=== PATIENT | female | born 1975 | race Caucasian/White ===

== ENCOUNTER 2016-08-10 08:51 | Emergency (ER) | payer SELFPAY ==
[~2016-08-10] VITALS: Ht 160 cm; Wt 76.2 kg
[~2016-08-10 08:51] MED LIST: IBUP-1050 PO; ONDA4TAB10 SL
[2016-08-10 09:00] VITALS: TEMP 36.9; Ht 160 cm; Wt 76.2 kg
--- NOTE | 2016-08-10 09:19 | EMERGENCY ROOM VISIT NOTE ---
History Report prepared by Christophe: Alexandra Pimentel Under the Supervision of: Dr. Steven Dickey M.D. First contact with patient: 09:06 Chief Complaint: CARDIAC ASSESSMENT Stated Complaint: PAIN OVER L BREAST,WEAK L ARM Nursing Triage Summary: Left sided chest pain for 2-4 weeks. Pt states, "I thought it was a pulled muscle. The pain is over my left breast. It got worse last night and was bothering me more. I felt better if I was sitting up. I don't have any sob. I do have acid reflux, but it doesn't seem like it's that. My left arm feels weak." History of Present Illness The patient is a 41 year old female who presents to the Emergency Room with complaints of intermittent left sided chest and breast pain that began a few weeks ago. She does not recall anything that seems to trigger the pain. She has never timed the pain, but states that her pain has lasted all morning today without going away. She describes it as "nagging." She does not have increased pain with breathing. Sitting up makes the pain slightly better. Her left breast is not red or swollen. She does not recall any trauma or injury. Since her chest discomfort began, she has noticed some left arm weakness. She also complains of feeling chills last night. The patient states that her father has a history of heart issues and required stent placement. He from what was believed to be a heart attack at 59. She does not smoke or drink alcohol. The patient does not have a personal history of heart or lung problems , diabetes, or hypertension. She does note that her blood pressure was high compared to baseline at a doctor's appointment last week. Her doctor was not concerned as it was the first time she has ever had an issue. The patient denies chance of . She is not on a blood thinner. Source of History: patient Onset: a few weeks ago Position: chest (left) Quality: other (nagging) Timing: intermittent Modifying Factors (Relieving): other (sitting up) Associated Symptoms: + chills, + weakness (left arm) Review of Systems See HPI for pertinent positives & negatives. A total of 10 systems reviewed and were otherwise negative. Past Medical & Surgical Medical Problems: (1) Bronchitis (2) delivery delivered (3) GERD (gastroesophageal reflux disease) (4) IBS (irritable bowel syndrome) Old medical records were reviewed. Nurse's notes were reviewed and I agree with. Family History Cancer Diabetes mellitus Gallbladder disease Heart disease Hypertension Kidney disease Kidney stones Social History Smoking Status: Never Smoker Alcohol Use: none Drug Use: none Marital Status: Housing Status: lives with family Occupation Status: employed Current/Historical Medications Miscellaneous Medications Triamcinolone Acetonide (Nasal (Nasal Allergy 24 Hour) Allergies Coded Allergies: Ciprofloxacin (Verified Allergy, Unknown, UNKN, 08/10/16) Sulfa Antibiotics (Verified Adverse Reaction, Intermediate, HALLUCINATIONS , 08/10/16) Physical Exam Vital Signs Date Time Temp Pulse Resp B/P Pulse Ox O2 Delivery O2 Flow Rate FiO2 08/10/16 10:51 65 14 111/67 98 08/10/16 09:22 67 08/10/16 09:00 36.9 69 18 129/83 98 Room Air Physical Exam General: Non-ill appearing middle aged female. Well developed well nourished in no acute distress, breathing comfortably on room air. Normal speech HEENT: Normal cephalic atraumatic. Pupils are equal round and reactive to light. Extraocular movements are intact. Oropharynx is pink with moist mucous membranes. No swelling of the mouth lips or tongue. Neck: Supple with a midline trachea. No meningeal signs or stiffness, no JVD or bruits. No Stridor. Chest: Mildly reproducibly tender. Clear to auscultation bilaterally. No wheezes or rhonchi. No increased work of breathing. Heart: regular rate and rhythm. Abdomen: Soft nontender, nondistended without rebound guarding or rigidity. Extremities: No cyanosis clubbing or edema. No calf tenderness or assymetry Spine/Back. Non tender to palpation. No CVA tenderness Skin: Good turgor without rashes. Neurologic exam: Cranial nerves two through 12 are intact. Motor and sensation are intact and symmetrical throughout. Medical Decision & Procedures ER Provider Diagnostic Interpretation: Radiology results as stated below per my review and radiologist interpretation: CHEST ONE VIEW PORTABLE CLINICAL HISTORY: Atypical chest pain COMPARISON STUDY: 03/18/2016 FINDINGS: The cardiac and mediastinal contours are normal. There is no evidence of focal pulmonary consolidation. There is no evidence of failure. No pleural effusions are visualized.[ IMPRESSION: No active disease in the chest. Electronically signed by: Gavin Messina M.D. 08/10/2016 9:23 AM Dictated Date/Time: 08/10/2016 9:23 AM Laboratory Results 08/10/16 09:10 Red Blood Count 4.61, Mean Corpuscular Volume 87.2, Mean Corpuscular Hemoglobin 30.4, Mean Corpuscular Hemoglobin Concent 34.8, Mean Platelet Volume 9.5, Neutrophils (%) (Auto) 66.8, Lymphocytes (%) (Auto) 26.3, Monocytes (%) (Auto) 5.3, Eosinophils (%) (Auto) 0.5, Basophils (%) (Auto) 0.3, Neutrophils # (Auto) 4.40, Lymphocytes # (Auto) 1.73, Monocytes # (Auto) 0.35, Eosinophils # (Auto) 0.03, Basophils # (Auto) 0.02 08/10/16 09:10 Test 08/10/16 09:10 08/10/16 09:13 08/10/16 09:23 White Blood Count 6.58 K/uL (4.8-10.8) Red Blood Count 4.61 M/uL (4.2-5.4) Hemoglobin 14.0 g/dL (12.0-16.0) Hematocrit 40.2 % (37-47) Mean Corpuscular Volume 87.2 fL (80-100) Mean Corpuscular Hemoglobin 30.4 pg (25-34) Mean Corpuscular Hemoglobin Concent 34.8 g/dl (32-36) Platelet Count 312 K/uL (130-400) Mean Platelet Volume 9.5 fL (7.4-10.4) Neutrophils (%) (Auto) 66.8 % Lymphocytes (%) (Auto) 26.3 % Monocytes (%) (Auto) 5.3 % Eosinophils (%) (Auto) 0.5 % Basophils (%) (Auto) 0.3 % Neutrophils # (Auto) 4.40 K/uL (1.4-6.5) Lymphocytes # (Auto) 1.73 K/uL (1.2-3.4) Monocytes # (Auto) 0.35 K/uL (0.11-0.59) Eosinophils # (Auto) 0.03 K/uL (0-0.5) Basophils # (Auto) 0.02 K/uL (0-0.2) RDW Standard Deviation 41.2 fL (36.4-46.3) RDW Coefficient of Variation 12.9 % (11.5-14.5) Immature Granulocyte % (Auto) 0.8 % Immature Granulocyte # (Auto) 0.05 K/uL (0.00-0.02) Anion Gap 5.0 mmol/L (3-11) Est Creatinine Clear Calc Drug Dose 97.4 ml/min Estimated GFR () 115.6 Estimated GFR (Non- 99.7 BUN/Creatinine Ratio 13.5 (10-20) Calcium Level 8.2 mg/dl (8.5-10.1) Total Bilirubin 0.3 mg/dl (0.2-1) Direct Bilirubin < 0.1 mg/dl (0-0.2) Aspartate Amino Transf (AST/SGOT) 16 U/L (15-37) Alanine Aminotransferase (ALT/SGPT) 30 U/L (12-78) Alkaline Phosphatase 75 U/L (45-117) Total Creatine Kinase 135 U/L (26-192) Creatine Kinase MB 2.1 ng/ml (0.5-3.6) Total Protein 7.5 gm/dl (6.4-8.2) Albumin 4.0 gm/dl (3.4-5.0) Lipase 146 U/L (73-393) Human Chorionic Gonadotropin, Qual NEG (NEG) Creatine Kinase MB Ratio (0-3.0) Bedside D-Dimer 73 ng/mlFEU (0-450) Bedside Troponin I 0.000 ng/ml (0-0.045) Laboratory studies as stated above per my review. ECG Indication: chest pain Rate (beats per minute): 70 Rhythm: normal sinus Findings: no acute ischemic change, no ectopy, other (no prolonged QT) Comparison ECG Date: 03/18/16 Change: no significant change ED Course 0908: The patient was evaluated in room B3, and a complete history and physical examination were performed. 1006: Upon reevaluation, the patient is resting comfortably. I discussed the results and treatment plan with the patient. She verbalized agreement of the treatment plan. The patient was discharged home. Medical Decision Differentials include acute coronary syndrome, PE, costochondritis, GERD, electrolyte or metabolic abnormality. This patient comes in as described above. She was placed in room B3. She is here for treatment and evaluation of chest pain. This for month. It is somewhat reproducible. IV access established. She had EKG which does not suggest acute coronary syndrome or arrhythmia. Chest x-ray was obtained as well as as multiple blood testing. She was reassessed frequently. She remained stable. Her cardiac enzymes are not elevated. Her symptoms are very atypical for a cardiac event been going on for a month. Her d-dimer is within normal limits and a low pretest probability study makes PE highly unlikely. She has no acute electrolyte or metabolic abnormalities. She was reassessed frequently. She has remained stable. She will be discharged home. I think most likely this is a costochondritis or musculoskeletal cause. She should use of enteric-coated aspirin daily and return if: Increasing pain, worsening of symptoms, fever or chills, any new problems or concerns. Follow-up with her doctor this week for recheck Impression Primary Impression: Precordial chest pain Additional Impression: Costochondritis Scribe Attestation The scribe's documentation has been prepared under my direction and personally reviewed by me in its entirety. I confirm that the note above accurately reflects all work, treatment, procedures, and medical decision making performed by me. Departure Information Dispostion Home / Self-Care Referrals [facility] (PCP) Patient Instructions My [facility] Additional Instructions Rest Drink plenty of fluids Use an enteric aspirin 81 mg a day REturn if: worsening of symptoms, increasing pain, fever, shortness of breath, any new problems or concerns Follow-up with your doctor in 2-4 days for recheck Problem Qualifiers
--- NOTE | 2016-08-10 09:26 | DIAGNOSTIC IMAGING REPORT ---
CHEST ONE VIEW PORTABLE CLINICAL HISTORY: Atypical chest pain COMPARISON STUDY: 03/18/2016 FINDINGS: The cardiac and mediastinal contours are normal. There is no evidence of focal pulmonary consolidation. There is no evidence of failure. No pleural effusions are visualized.[ IMPRESSION: No active disease in the chest. Electronically signed by: Gavin Messina M.D. 08/10/2016 9:23 AM Dictated Date/Time: 08/10/2016 9:23 AM
[2016-08-10 09:34] LABS: BASO % 0.3 %; BASO ABS # 0.02 K/uL (0-0.2); COMPLETE YES; EOS % 0.5 %; HEMATOCRIT 40.2 % (37-47); IG% 0.8 %; LYMPH % 26.3 %; LYMPH ABS # 1.73 K/uL (1.2-3.4); MEAN CELL VOLUME 87.2 fL (80-100); MEAN CORPUSCULAR HEMOGLOBIN 30.4 pg (25-34); MEAN CORPUSCULAR HGB CONC 34.8 g/dl (32-36); MEAN PLATELET VOLUME 9.5 fL (7.4-10.4); MONO % 5.3 %; NEUT % 66.8 %; PLATELET COUNT 312 K/uL (130-400); RED BLOOD COUNT 4.61 M/uL (4.2-5.4); WHITE BLOOD COUNT 6.58 K/uL (4.8-10.8)
[2016-08-10] MEDS ORDERED: TRIA1SPR10 (09:53)
[2016-08-10 09:57] LABS: PREG INTERNAL NEGATIVE QC NEG CLEAR BACKGROUND; PREG INTERNAL POSITIVE QC POS CONTROL LINE
[2016-08-10 09:58] LABS: BLOOD UREA NITROGEN 10 mg/dl (7-18); BUN/CREATININE RATIO 13.5 (10-20); CALCIUM 8.2 mg/dl (8.5-10.1); CARBON DIOXIDE 28 mmol/L (21-32); CHLORIDE 109 mmol/L (98-107); CREATININE 0.75 mg/dl (0.60-1.20); GLUCOSE 93 mg/dl (70-99); POTASSIUM 3.8 mmol/L (3.5-5.1); SODIUM 142 mmol/L (136-145)
[2016-08-10 10:03] LABS: ALKALINE PHOSPHATASE 75 U/L (45-117); ALT/SGPT 30 U/L (12-78); AST/SGOT 16 U/L (15-37); CKMB/CK RATIO 1.6 (0-3.0)
[2016-08-10 10:51] VITALS: BP 111/67; PULSE 65; O2SAT 98
== END 2016-08-10 10:50 | disposition home or self-care (01) ==
LOC: C.EDB 08:52
DX: R07.2 Precordial pain (principal); M94.0 Chondrocostal junction syndrome [Tietze]; R68.83 Chills (without fever); M62.81 Muscle weakness (generalized); K21.9 Gastro-esophageal reflux disease without esophagitis; K58.9 Irritable bowel syndrome, unspecified; Z87.09 Personal history of other diseases of the respiratory system; Z82.49 Family history of ischemic heart disease and other diseases of the circulatory system; Z83.3 Family history of diabetes mellitus; Z83.79 Family history of other diseases of the digestive system; Z84.1 Family history of disorders of kidney and ureter

== ENCOUNTER → 2016-10-22 | Outpatient (CLI) | payer OTHER ==
[~2016-10-22] MED LIST changes: -IBUP-1050 PO; -ONDA4TAB10 SL; +TRIA1SPR10
[2016-10-22 17:04] LABS: PREG INTERNAL NEGATIVE QC NEG CLEAR BACKGROUND; PREG INTERNAL POSITIVE QC POS CONTROL LINE
== END | disposition home or self-care (01) ==
LOC: C.LAB1850 14:31
PROVIDERS: ATTEND Obstetrics & Gynecology
DX: N93.9 Abnormal uterine and vaginal bleeding, unspecified (principal)

== ENCOUNTER 2017-06-13 13:30 | Emergency (ER) | payer SELFPAY ==
[~2017-06-13] VITALS: Ht 160 cm; Wt 74.0 kg
[2017-06-13 13:34] VITALS: TEMP 37.1; Ht 160 cm; Wt 74.0 kg
[2017-06-13 14:00] VITALS: O2SAT 100
[2017-06-13] MEDS ORDERED: FAMO20TA11 PO (14:07)
--- NOTE | 2017-06-13 14:27 | DIAGNOSTIC IMAGING REPORT ---
SINGLE VIEW CHEST CLINICAL HISTORY: Dyspnea. FINDINGS: An AP, portable, upright chest radiograph is compared to study dated 08/10/2016. The examination is degraded by portable technique, apical lordotic positioning, and patient rotation. The cardiomediastinal silhouette is unremarkable. The lungs and pleural spaces are clear. No pneumothorax is seen. The bony thorax is grossly intact. IMPRESSION: No active disease in the chest. Electronically signed by: Kodi Almendarez M.D. 06/13/2017 2:26 PM Dictated Date/Time: 06/13/2017 2:26 PM
[2017-06-13 14:39] LABS: ALT/SGPT 34 U/L (12-78); BLOOD UREA NITROGEN 6 mg/dl (7-18); CALCIUM 8.4 mg/dl (8.5-10.1); CARBON DIOXIDE 25 mmol/L (21-32); CREATININE 0.74 mg/dl (0.60-1.20); GLUCOSE 90 mg/dl (70-99); LIPASE 129 U/L (73-393); POTASSIUM 3.9 mmol/L (3.5-5.1); SODIUM 139 mmol/L (136-145)
[2017-06-13 14:41] LABS: BASO % 0.3 %; BASO ABS # 0.03 K/uL (0-0.2); EOS % 0.1 %; EOS ABS # 0.01 K/uL (0-0.5); HEMATOCRIT 41.1 % (37-47); HEMOGLOBIN 13.9 g/dL (12.0-16.0); IG# 0.03 K/uL (0.00-0.02); LYMPH % 19.4 %; LYMPH ABS # 1.68 K/uL (1.2-3.4); MEAN CELL VOLUME 87.3 fL (80-100); MEAN CORPUSCULAR HEMOGLOBIN 29.5 pg (25-34); MEAN CORPUSCULAR HGB CONC 33.8 g/dl (32-36); MEAN PLATELET VOLUME 9.3 fL (7.4-10.4); MONO % 5.3 %; MONO ABS # 0.46 K/uL (0.11-0.59); NEUT % 74.6 %; NEUT ABS # 6.44 K/uL (1.4-6.5); PLATELET COUNT 319 K/uL (130-400); PTT PATIENT 25.6 SECONDS (21.0-31.0); RED CELL DISTRIBUTION WIDTH CV 12.6 % (11.5-14.5); RED CELL DISTRIBUTION WIDTH SD 40.7 fL (36.4-46.3); WHITE BLOOD COUNT 8.65 K/uL (4.8-10.8)
[2017-06-13 14:44] LABS: ALKALINE PHOSPHATASE 75 U/L (45-117); AST/SGOT 22 U/L (15-37); TOTAL PROTEIN 7.7 gm/dl (6.4-8.2)
[2017-06-13] MEDS ORDERED: KETOROLAC TROMETHAMINE 30 MG/ML VIAL IV STA (15:31)
[2017-06-13 15:40] VITALS: BP 116/73; PULSE 65; O2SAT 100
--- NOTE | 2017-06-13 16:12 | EMERGENCY ROOM VISIT NOTE ---
History First contact with patient: 14:07 Chief Complaint: RESPIRATORY PROBLEMS Stated Complaint: PAIN IN CENTER OF CHEST, HURTS WHEN TAKING DEEP BR Nursing Triage Summary: pt to the ED with c/o difficulty breathing and feels tightness in chest and hurts more when she takes a deep breath sx started last week was on augmentin and was taken off it for heartburn History of Present Illness The patient is a 42 year old female who presents to the Emergency Room with complaints of intermittent chest pain for the past month. The patient reports that she was seen 2 weeks ago at [facility] by Dr. Anderson, and given a prescription for acute sinusitis. The patient denied any cough at that time. Within a few days of use of Augmentin, she then started to develop worsening chest discomfort. Dr. Anderson told her to stop the Augmentin and take Pepcid for her pain. The patient reports persistent chest pain, especially when taking a deep breath and exhaling. The patient reports that it feels like something heavy is sitting on her chest. She denies any pain radiating into the ribs or back. She also denies any pain radiating into the abdomen, neck or jaw. The patient reports that she has had a prior history of chest pain, and had a normal stress test performed last year after being evaluated here in the emergency department for chest pain. Her stress test and echo were both normal. The patient does have a family history of coronary artery disease with her father dying at the age of 59 from a heart attack after undergoing cardiac stenting prior to . She denies tobacco or alcohol use. The patient denies any significant cough or shortness of breath area the patient denies any diagnosis of GERD. She currently rates her discomfort a 6 out of 10. Review of Systems HEENT: Denies dizziness, visual problems, hearing loss, tinnitus. Denies difficulty swallowing or oral lesions. PULMONARY: Denies significant cough, shortness of breath, sputum production or hemoptysis. CARDIOVASCULAR: Denies palpitations, dyspnea on exertion, orthopnea or peripheral edema. Otherwise see history of present illness. GASTROINTESTINAL: Denies diarrhea, constipation, nausea, vomiting, or abdominal pain. GENITOURINARY: Denies dysuria, frequency, urgency or nocturia. NEUROLOGIC: Denies history of epilepsy, CVA, TIA or chronic headaches. MUSCULOSKELETAL: Denies history of joint tenderness/swelling. SKIN: Denies rashes or lesions. PSYCHIATRIC: Denies history of depression or mental illness. ENDOCRINE: Denies history of diabetes or thyroid disorders. Past Medical/Surgical History Medical Problems: (1) Bronchitis (2) delivery delivered (3) GERD (gastroesophageal reflux disease) (4) IBS (irritable bowel syndrome) Family History Cancer Diabetes mellitus Gallbladder disease Heart disease Hypertension Kidney disease Kidney stones Social History Smoking Status: Never Smoker Alcohol Use: none Drug Use: none Marital Status: Housing Status: lives with family Occupation Status: employed Current/Historical Medications Scheduled Famotidine (Pepcid), 1 TAB PO BID Physical Exam Vital Signs Date Time Temp Pulse Resp B/P (MAP) Pulse Ox O2 Delivery O2 Flow Rate FiO2 06/13/17 15:40 65 18 116/73 100 Room Air 06/13/17 14:08 63 06/13/17 14:01 100 Room Air 06/13/17 14:00 100 Room Air 06/13/17 13:34 37.1 71 16 160/95 99 Physical Exam CONSTITUTIONAL: Healthy and well nourished. Alert and oriented X 3 with positive affect. She does not appear in any acute distress. HEENT: Normocephalic, atraumatic. Pupils equal, round and reactive. Ears and nares are clear. No scleral icterus or conjunctival injection. OROPHARYNX: No postnasal drip or posterior pharyngeal erythema. NECK: Full active range of motion without discomfort. No JVD or carotid bruits. RESPIRATORY: Clear to auscultation bilaterally with no wheezing, crackles, rhonchi or stridor. She does not have any significant discomfort with inhalation or exhalation, although she does report worsening discomfort with exhalation. CARDIOVASCULAR: Regular rate and rhythm with no murmurs, rubs or gallops. GASTROINTESTINAL: Bowel sounds present in all quadrants. Soft and nontender to palpation. MUSCULOSKELETAL: Full range of motion of all joints without discomfort. Should has mild tenderness to palpation over the costochondral joints. No tenderness to palpation through the ribs. INTEGUMENTARY: No rash or other significant dermatologic conditions noted. HEMATOLOGIC: No ecchymosis or petechiae noted. NEUROLOGIC: Cranial nerves II-XII grossly intact. No focal neurologic deficits noted. Medical Decision & Procedures ER Provider Diagnostic Interpretation: My interpretation of an ECG shows a normal sinus rhythm of [address] elevation or other conduction abnormalities. P waves do appear inverted on V1, but comparison with an ECG dated 08/10/16 does not show any acute changes. My interpretation of a portable chest x-ray does not show any consolidations, pneumothorax or obvious cardiomegaly. Radiologist report is as follows: SINGLE VIEW CHEST CLINICAL HISTORY: Dyspnea. FINDINGS: An AP, portable, upright chest radiograph is compared to study dated 08/10/2016. The examination is degraded by portable technique, apical lordotic positioning, and patient rotation. The cardiomediastinal silhouette is unremarkable. The lungs and pleural spaces are clear. No pneumothorax is seen. The bony thorax is grossly intact. IMPRESSION: No active disease in the chest. Laboratory Results 06/13/17 14:00 Red Blood Count 4.71, Mean Corpuscular Volume 87.3, Mean Corpuscular Hemoglobin 29.5, Mean Corpuscular Hemoglobin Concent 33.8, Mean Platelet Volume 9.3, Neutrophils (%) (Auto) 74.6, Lymphocytes (%) (Auto) 19.4, Monocytes (%) (Auto) 5.3, Eosinophils (%) (Auto) 0.1, Basophils (%) (Auto) 0.3, Neutrophils # (Auto) 6.44, Lymphocytes # (Auto) 1.68, Monocytes # (Auto) 0.46, Eosinophils # (Auto) 0.01, Basophils # (Auto) 0.03 06/13/17 14:00 Test 06/13/17 14:00 White Blood Count 8.65 K/uL (4.8-10.8) Red Blood Count 4.71 M/uL (4.2-5.4) Hemoglobin 13.9 g/dL (12.0-16.0) Hematocrit 41.1 % (37-47) Mean Corpuscular Volume 87.3 fL (80-100) Mean Corpuscular Hemoglobin 29.5 pg (25-34) Mean Corpuscular Hemoglobin Concent 33.8 g/dl (32-36) Platelet Count 319 K/uL (130-400) Mean Platelet Volume 9.3 fL (7.4-10.4) Neutrophils (%) (Auto) 74.6 % Lymphocytes (%) (Auto) 19.4 % Monocytes (%) (Auto) 5.3 % Eosinophils (%) (Auto) 0.1 % Basophils (%) (Auto) 0.3 % Neutrophils # (Auto) 6.44 K/uL (1.4-6.5) Lymphocytes # (Auto) 1.68 K/uL (1.2-3.4) Monocytes # (Auto) 0.46 K/uL (0.11-0.59) Eosinophils # (Auto) 0.01 K/uL (0-0.5) Basophils # (Auto) 0.03 K/uL (0-0.2) RDW Standard Deviation 40.7 fL (36.4-46.3) RDW Coefficient of Variation 12.6 % (11.5-14.5) Immature Granulocyte % (Auto) 0.3 % Immature Granulocyte # (Auto) 0.03 K/uL (0.00-0.02) Prothrombin Time 10.2 SECONDS (9.0-12.0) Prothromb Time International Ratio 1.0 (0.9-1.1) Activated Partial Thromboplast Time 25.6 SECONDS (21.0-31.0) Partial Thromboplastin Ratio 1.0 D-Dimer 310 ug/L FEU (0-500) Anion Gap 9.0 mmol/L (3-11) Est Creatinine Clear Calc Drug Dose 96.4 ml/min Estimated GFR () 116.6 Estimated GFR (Non- 100.6 BUN/Creatinine Ratio 7.6 (10-20) Calcium Level 8.4 mg/dl (8.5-10.1) Total Bilirubin 0.4 mg/dl (0.2-1) Direct Bilirubin < 0.1 mg/dl (0-0.2) Aspartate Amino Transf (AST/SGOT) 22 U/L (15-37) Alanine Aminotransferase (ALT/SGPT) 34 U/L (12-78) Alkaline Phosphatase 75 U/L (45-117) Total Creatine Kinase 132 U/L (26-192) Troponin I < 0.015 ng/ml (0-0.045) Total Protein 7.7 gm/dl (6.4-8.2) Albumin 4.0 gm/dl (3.4-5.0) Lipase 129 U/L (73-393) The above labs were reviewed. Troponin and d-dimer are normal. Otherwise remaining labs are also grossly normal. Medications Administered Medications (Trade) Dose Ordered Sig/Nicci Route Start Time Stop Time Status Last Admin Dose Admin Ketorolac Tromethamine (Toradol Inj) 30 mg NOW STAT IV 06/13/17 15:31 06/13/17 15:32 DC 06/13/17 15:39 30 MG ED Course Patient history and physical exam were performed. Nurse's notes were reviewed. Vital signs were reviewed, showing a blood pressure 160/95. O2 saturation is 99% on room air. The patient is not tachycardic, and is afebrile. I also reviewed prior medical records, showing that the patient was here in July 2016 with chest pain and normal workup. Although the patient reports that she had her stress test and echo performed at our hospital. No records exist through EMR. IV access was established, and labs were drawn. The patient refused any analgesics. An ECG and portable chest x-ray were normal. Review of labs shows a normal d-dimer and troponin. Remaining labs are also grossly normal. The patient denied any worsening pain while in the emergency department. The case was further discussed with Dr. Giang, ED attending physician, who agrees that this pain is likely pleuritic in nature. The patient was administered IV Toradol. She was encouraged to alternate ibuprofen and Tylenol as needed for pain. The patient reports that she has no point with her PCP tomorrow for reevaluation. The patient was instructed to return to the emergency department for any progressively worsening pain, nausea, diaphoresis or other concerning symptoms. The patient was happy with plan of care, and rated her discomfort a 3 out of 10 at the conclusion of my exam, which was prior to her IV Toradol administration. Medical Decision Patient presents to the emergency department with complaint of chest pain that is worsened with inspiration and expiration. This is most suggestive of pleuritic chest pain. Her workup today does not show any evidence for myocardial infarction. Chest x-rays are not consistent with pneumonia, pneumothorax, heart failure or cardiomegaly. I do not suspect pericarditis or myocarditis. The patient may warrant cardiology reevaluation if symptoms persist. The patient was given instructions on NSAIDs for treatment. Laboratory studies are not suggestive of pancreatitis, cholecystitis or hepatitis. At this point, I do not suspect acute gastritis, peptic ulcer disease or GI bleed. [place] Drug Monitoring Program Search Results: patient reviewed within database Medication Reconcilliation Current Medication List: was personally reviewed by me Blood Pressure Screening Patient's blood pressure: Normal blood pressure Impression Primary Impression: Pleuritic chest pain Departure Information Referrals [facility] (PCP) Patient Instructions My [facility]
== END 2017-06-13 15:57 | disposition home or self-care (01) ==
LOC: C.EDB 13:32 → C.EDC 15:57
DX: R07.1 Chest pain on breathing (principal); K21.9 Gastro-esophageal reflux disease without esophagitis; K58.9 Irritable bowel syndrome, unspecified; Z82.49 Family history of ischemic heart disease and other diseases of the circulatory system; Z83.3 Family history of diabetes mellitus; Z84.1 Family history of disorders of kidney and ureter